=== PATIENT | male | born 1995 | race Caucasian/White ===

== ENCOUNTER 2017-06-19 15:24 | Emergency (ER) | payer SELFPAY ==
[~2017-06-19] VITALS: Ht 172.7 cm; Wt 82.6 kg
[2017-06-19] MEDS ORDERED: LIDOCAINE HCL 1% 20 ML VIAL ONE (16:02)
[2017-06-19] MEDS ORDERED: AZITHROMYCIN 250 MG TABLET ONE (16:02)
[2017-06-19] MEDS ORDERED: CEFTRIAXONE 500 MG VIAL ONE (16:03)
[2017-06-19] MEDS: CEFTRIAXONE 500 MG VIAL IM ONE (16:06)
[2017-06-19] MEDS: AZITHROMYCIN 250 MG TABLET PO ONE (16:06)
--- NOTE | 2017-06-19 16:15 | NUR ---
Patient discharged to home in stable conditon. Written and verbal after care instructions given. Patient verbalizes understanding of instructions.
[2017-06-19 16:16] VITALS: BP 122/66
== END 2017-06-19 16:16 | disposition home or self-care (01) ==
LOC: ER 15:24
DX: Z20.2 Contact with and (suspected) exposure to infections with a predominantly sexual mode of transmission (principal); F17.210 Nicotine dependence, cigarettes, uncomplicated
CPT/HCPCS: A4663; J0696; J3490; Q0144